=== PATIENT | female | born 1945 | race Caucasian/White ===

== ENCOUNTER → 2017-08-12 | Outpatient (CLI) | payer OTHER ==
[~2017-08-12] MED LIST: CELEBREX100 MG; FOLIC ACID1 MG; GLIMEPIRIDE1 MG; GLIMEPIRIDE2 MG; HYZAAR 100-121 UDTAB; METFORMIN HCL500 MG
== END | disposition home or self-care (01) ==
LOC: RAD 12:06
DX: M25.561 Pain in right knee (principal); M25.562 Pain in left knee

== ENCOUNTER 2018-01-08 11:46 | Emergency (ER) | payer OTHER ==
[~2018-01-08] VITALS: Ht 162.6 cm; Wt 90.7 kg
[2018-01-08] MEDS ORDERED: MUPIROCIN22 GM TOP (13:11)
[2018-01-08] MEDS ORDERED: AMOX1TAB5 PO (13:11)
[2018-01-08] MEDS ORDERED: HIBICLENS118 ML TOP (13:11)
[2018-01-08] MEDS ORDERED: INTESTINEX680 M1 PO (13:11)
[2018-01-08] MEDS ORDERED: HYZAAR 100-12.1 EACH PO (14:02)
[2018-01-08] MEDS ORDERED: GLIMEPIRIDE2 MG PO (14:02)
[2018-01-08] MEDS ORDERED: JANUVIA100 MG PO (14:02)
[2018-01-08] MEDS ORDERED: METFORMIN HCL500 MG PO (14:02)
[2018-01-08] MEDS ORDERED: FOLIC ACID1 MG PO (14:05)
[2018-01-08] MEDS ORDERED: DITROPAN XL10 MG PO (14:05)
[2018-01-08] MEDS ORDERED: NEURONTIN300 MG PO (14:05)
== END 2018-01-08 14:21 | disposition home or self-care (01) ==
LOC: ER 11:46
DX: L02.212 Cutaneous abscess of back [any part, except buttock and flank] (principal)

== ENCOUNTER 2018-03-02 11:26 | Emergency (ER) | payer OTHER ==
[~2018-03-02] VITALS: Ht 162.6 cm; Wt 90.7 kg
[~2018-03-02 11:26] MED LIST changes: +AMOX1TAB5 PO; +DITROPAN XL10 MG PO; +FOLIC ACID1 MG PO; +GLIMEPIRIDE2 MG PO; +HIBICLENS118 ML TOP; +HYZAAR 100-12.1 EACH PO; +INTESTINEX680 M1 PO; +JANUVIA100 MG PO; +METFORMIN HCL500 MG PO; +MUPIROCIN22 GM TOP; +NEURONTIN300 MG PO
[2018-03-02] MEDS ORDERED: DICLOFENAC POTA50 MG (11:50)
== END 2018-03-02 13:15 | disposition home or self-care (01) ==
LOC: ER 11:26
DX: B34.9 Viral infection, unspecified (principal); J11.1 Influenza due to unidentified influenza virus with other respiratory manifestations

== ENCOUNTER 2018-04-30 10:20 | Outpatient (CLI) | payer OTHER ==
[~2018-04-30 10:20] MED LIST changes: +DICLOFENAC POTA50 MG
== END 2018-04-30 10:22 | disposition home or self-care (01) ==
LOC: RAD 10:20
DX: I11.9 Hypertensive heart disease without heart failure (principal); R06.02 Shortness of breath

== ENCOUNTER → 2018-05-05 | Outpatient (CLI) | payer OTHER | END | disposition home or self-care (01) | LOC: NUCLEAR 09:55 | DX: M81.0 Age-related osteoporosis without current pathological fracture (principal); M15.0 Primary generalized (osteo)arthritis ==

== ENCOUNTER 2018-05-28 08:03 | Emergency (ER) | payer OTHER ==
[~2018-05-28] VITALS: Ht 162.6 cm; Wt 93.0 kg
[2018-05-28] MEDS ORDERED: ZOCOR20 MG (08:15)
[2018-05-28] MEDS ORDERED: BACTRIM DS TAB1 EACH PO (09:24)
[2018-05-28] MEDS ORDERED: MUPIROCIN15 GM TOP (09:24)
== END 2018-05-28 11:13 | disposition home or self-care (01) ==
LOC: ER 08:03
DX: L02.212 Cutaneous abscess of back [any part, except buttock and flank] (principal)

== ENCOUNTER 2018-07-21 14:04 | Outpatient (CLI) | payer OTHER ==
[~2018-07-21 14:04] MED LIST changes: +BACTRIM DS TAB1 EACH PO; +MUPIROCIN15 GM TOP; +ZOCOR20 MG
== END 2018-07-21 14:33 | disposition home or self-care (01) ==
LOC: MAMO-SONO 14:04
DX: Z12.31 Encounter for screening mammogram for malignant neoplasm of breast (principal); Z87.898 Personal history of other specified conditions; N60.11 Diffuse cystic mastopathy of right breast; N60.12 Diffuse cystic mastopathy of left breast

== ENCOUNTER → 2018-11-06 | Outpatient (CLI) | payer OTHER | END | disposition home or self-care (01) | LOC: LAB 14:06 | DX: N39.0 Urinary tract infection, site not specified (principal) ==

== ENCOUNTER → 2019-01-26 09:29 | Outpatient (CLI) | payer OTHER | END | disposition home or self-care (01) | LOC: LAB 09:29 | DX: D50.8 Other iron deficiency anemias (principal); E03.8 Other specified hypothyroidism; E78.2 Mixed hyperlipidemia; I11.9 Hypertensive heart disease without heart failure; E56.8 Deficiency of other vitamins; N39.0 Urinary tract infection, site not specified; Z12.11 Encounter for screening for malignant neoplasm of colon; R19.5 Other fecal abnormalities; E55.9 Vitamin D deficiency, unspecified; N19 Unspecified kidney failure; E11.9 Type 2 diabetes mellitus without complications; R80.8 Other proteinuria; C18.0 Malignant neoplasm of cecum ==

== ENCOUNTER 2019-05-25 09:07 | Outpatient (CLI) | payer OTHER | END 2019-05-25 09:13 | disposition home or self-care (01) | LOC: LAB 09:07 | DX: D50.8 Other iron deficiency anemias (principal); E03.8 Other specified hypothyroidism; E78.2 Mixed hyperlipidemia; I11.9 Hypertensive heart disease without heart failure; E56.8 Deficiency of other vitamins; N39.0 Urinary tract infection, site not specified; Z12.11 Encounter for screening for malignant neoplasm of colon; E55.9 Vitamin D deficiency, unspecified; N19 Unspecified kidney failure; E11.9 Type 2 diabetes mellitus without complications; R80.8 Other proteinuria; C18.0 Malignant neoplasm of cecum; K92.1 Melena ==

== ENCOUNTER 2019-09-17 07:24 | Outpatient (CLI) | payer OTHER | END 2019-09-17 08:05 | disposition home or self-care (01) | LOC: LAB 07:24 | PROVIDERS: ATTEND Internal Medicine Geriatric Medicine | DX: D50.8 Other iron deficiency anemias (principal); E03.8 Other specified hypothyroidism; E78.2 Mixed hyperlipidemia; I11.9 Hypertensive heart disease without heart failure; E56.8 Deficiency of other vitamins; N39.0 Urinary tract infection, site not specified; Z12.11 Encounter for screening for malignant neoplasm of colon; E55.9 Vitamin D deficiency, unspecified; N19 Unspecified kidney failure; E11.9 Type 2 diabetes mellitus without complications; R80.8 Other proteinuria; C18.0 Malignant neoplasm of cecum; K92.1 Melena ==

== ENCOUNTER 2019-09-19 09:51 | Emergency (ER) | payer OTHER ==
[~2019-09-19] VITALS: Ht 162.6 cm; Wt 93.0 kg
== END 2019-09-19 17:42 | disposition home or self-care (01) ==
LOC: ER 09:51
DX: N93.8 Other specified abnormal uterine and vaginal bleeding (principal)

== ENCOUNTER 2019-12-05 12:26 | Emergency (ER) | payer OTHER ==
[~2019-12-05] VITALS: Ht 162.6 cm; Wt 90.7 kg
== END 2019-12-05 13:30 | disposition home or self-care (01) ==
LOC: ER 12:26
DX: B35.4 Tinea corporis (principal)

== ENCOUNTER 2019-12-18 10:09 | Outpatient (CLI) | payer OTHER | END 2019-12-18 10:13 | disposition home or self-care (01) | LOC: LAB 10:09 | PROVIDERS: ATTEND Internal Medicine Geriatric Medicine | DX: D50.8 Other iron deficiency anemias (principal); E03.8 Other specified hypothyroidism; E78.2 Mixed hyperlipidemia; I11.9 Hypertensive heart disease without heart failure; E56.8 Deficiency of other vitamins; N39.0 Urinary tract infection, site not specified; Z12.11 Encounter for screening for malignant neoplasm of colon; E55.9 Vitamin D deficiency, unspecified; N18.9 Chronic kidney disease, unspecified; K92.1 Melena; C18.0 Malignant neoplasm of cecum; R80.8 Other proteinuria; E11.9 Type 2 diabetes mellitus without complications ==

== ENCOUNTER 2020-03-28 07:17 | Outpatient (CLI) | payer OTHER | END 2020-03-28 07:27 | disposition home or self-care (01) | LOC: LAB 07:17 | PROVIDERS: ATTEND Internal Medicine Geriatric Medicine | DX: D50.8 Other iron deficiency anemias (principal); E03.8 Other specified hypothyroidism; E78.2 Mixed hyperlipidemia; I11.9 Hypertensive heart disease without heart failure; E56.8 Deficiency of other vitamins; N39.0 Urinary tract infection, site not specified; Z12.11 Encounter for screening for malignant neoplasm of colon; E55.9 Vitamin D deficiency, unspecified; N19 Unspecified kidney failure; E11.9 Type 2 diabetes mellitus without complications; R80.8 Other proteinuria; K92.1 Melena ==

== ENCOUNTER 2020-03-28 08:59 | Outpatient (CLI) | payer OTHER | END 2020-03-28 09:08 | disposition home or self-care (01) | LOC: MAMO-SONO 08:59 | PROVIDERS: ATTEND Internal Medicine Geriatric Medicine | DX: Z12.31 Encounter for screening mammogram for malignant neoplasm of breast (principal); N60.01 Solitary cyst of right breast; N60.11 Diffuse cystic mastopathy of right breast; N60.12 Diffuse cystic mastopathy of left breast; N64.4 Mastodynia ==

== ENCOUNTER 2020-03-29 10:02 | Outpatient (CLI) | payer OTHER | END 2020-03-29 15:00 | disposition home or self-care (01) | LOC: LAB 10:02 | PROVIDERS: ATTEND Internal Medicine Geriatric Medicine | DX: E03.8 Other specified hypothyroidism (principal); D50.8 Other iron deficiency anemias; E78.2 Mixed hyperlipidemia; I11.9 Hypertensive heart disease without heart failure; E56.8 Deficiency of other vitamins; N39.0 Urinary tract infection, site not specified; Z12.11 Encounter for screening for malignant neoplasm of colon; E55.9 Vitamin D deficiency, unspecified; N19 Unspecified kidney failure; E11.9 Type 2 diabetes mellitus without complications; R80.8 Other proteinuria; C18.0 Malignant neoplasm of cecum; K92.1 Melena ==

== ENCOUNTER 2020-06-27 07:43 | Outpatient (CLI) | payer OTHER | END 2020-06-27 07:51 | disposition home or self-care (01) | LOC: LAB 07:43 | PROVIDERS: ATTEND Internal Medicine Geriatric Medicine | DX: D50.8 Other iron deficiency anemias (principal); E03.8 Other specified hypothyroidism; E78.2 Mixed hyperlipidemia; I11.9 Hypertensive heart disease without heart failure; E56.8 Deficiency of other vitamins; N39.0 Urinary tract infection, site not specified; Z12.11 Encounter for screening for malignant neoplasm of colon; E55.9 Vitamin D deficiency, unspecified; N19 Unspecified kidney failure; E11.9 Type 2 diabetes mellitus without complications; R80.8 Other proteinuria; C18.0 Malignant neoplasm of cecum; K92.1 Melena; R06.02 Shortness of breath ==

== ENCOUNTER → 2020-09-26 08:49 | Outpatient (CLI) | payer OTHER | END | disposition home or self-care (01) | LOC: LAB 08:49 | PROVIDERS: ATTEND Internal Medicine Geriatric Medicine | DX: D50.9 Iron deficiency anemia, unspecified (principal); E03.9 Hypothyroidism, unspecified; E78.2 Mixed hyperlipidemia; E11.9 Type 2 diabetes mellitus without complications; E56.8 Deficiency of other vitamins; N39.0 Urinary tract infection, site not specified; E55.9 Vitamin D deficiency, unspecified; N19 Unspecified kidney failure; R80.9 Proteinuria, unspecified; C18.9 Malignant neoplasm of colon, unspecified; K92.1 Melena ==

== ENCOUNTER 2020-12-27 08:58 | Outpatient (CLI) | payer OTHER | END 2020-12-27 08:59 | disposition home or self-care (01) | LOC: LAB 08:58 | PROVIDERS: ATTEND Internal Medicine Geriatric Medicine | DX: D50.8 Other iron deficiency anemias (principal); E03.8 Other specified hypothyroidism; E78.2 Mixed hyperlipidemia; I11.9 Hypertensive heart disease without heart failure; E56.8 Deficiency of other vitamins; N39.0 Urinary tract infection, site not specified; Z12.11 Encounter for screening for malignant neoplasm of colon; R19.5 Other fecal abnormalities; E55.9 Vitamin D deficiency, unspecified; N28.89 Other specified disorders of kidney and ureter; E11.9 Type 2 diabetes mellitus without complications; R80.8 Other proteinuria ==

== ENCOUNTER 2021-03-27 13:54 | Outpatient (CLI) | payer OTHER | END 2021-03-27 13:55 | disposition home or self-care (01) | LOC: LAB 13:54 | PROVIDERS: ATTEND Internal Medicine Geriatric Medicine | DX: D50.8 Other iron deficiency anemias (principal); E03.8 Other specified hypothyroidism; E78.2 Mixed hyperlipidemia; I11.9 Hypertensive heart disease without heart failure; E56.8 Deficiency of other vitamins; N39.0 Urinary tract infection, site not specified; Z12.11 Encounter for screening for malignant neoplasm of colon; R19.5 Other fecal abnormalities; E55.9 Vitamin D deficiency, unspecified; N19 Unspecified kidney failure; E11.9 Type 2 diabetes mellitus without complications; R80.8 Other proteinuria ==

== ENCOUNTER 2021-03-30 08:00 | Outpatient (CLI) | payer OTHER | END 2021-03-30 08:30 | disposition home or self-care (01) | LOC: PPH VACUNA 08:00 | PROVIDERS: ATTEND Emergency Medicine Pediatric Emergency Medicine | DX: Z23 Encounter for immunization (principal) ==

== ENCOUNTER → 2021-06-15 08:08 | Outpatient (CLI) | payer OTHER | END | disposition home or self-care (01) | LOC: LAB 08:08 | PROVIDERS: ATTEND Internal Medicine Geriatric Medicine | DX: D50.9 Iron deficiency anemia, unspecified (principal); E03.9 Hypothyroidism, unspecified; E78.2 Mixed hyperlipidemia; I11.9 Hypertensive heart disease without heart failure; E56.8 Deficiency of other vitamins; N39.0 Urinary tract infection, site not specified; Z12.11 Encounter for screening for malignant neoplasm of colon; E55.9 Vitamin D deficiency, unspecified; N19 Unspecified kidney failure; R80.9 Proteinuria, unspecified; K92.1 Melena; R06.02 Shortness of breath ==

== ENCOUNTER 2021-09-13 08:32 | Outpatient (CLI) | payer OTHER | END 2021-09-13 08:39 | disposition home or self-care (01) | LOC: LAB 08:32 | PROVIDERS: ATTEND Internal Medicine Geriatric Medicine | DX: D50.9 Iron deficiency anemia, unspecified (principal); E03.9 Hypothyroidism, unspecified; E78.2 Mixed hyperlipidemia; I11.9 Hypertensive heart disease without heart failure; E56.8 Deficiency of other vitamins; N39.0 Urinary tract infection, site not specified; Z12.11 Encounter for screening for malignant neoplasm of colon; R19.5 Other fecal abnormalities; E55.9 Vitamin D deficiency, unspecified; N19 Unspecified kidney failure; E11.9 Type 2 diabetes mellitus without complications ==

== ENCOUNTER 2021-09-22 09:15 | Outpatient (CLI) | payer OTHER | END 2021-09-22 09:25 | disposition home or self-care (01) | LOC: PPH VACUNA 09:15 | PROVIDERS: ATTEND Emergency Medicine Pediatric Emergency Medicine | DX: Z23 Encounter for immunization (principal) ==

== ENCOUNTER 2022-03-23 07:25 | Outpatient (CLI) | payer OTHER | END 2022-03-23 07:29 | disposition home or self-care (01) | LOC: LAB 07:25 | PROVIDERS: ATTEND Internal Medicine Geriatric Medicine | DX: D50.9 Iron deficiency anemia, unspecified (principal); E03.9 Hypothyroidism, unspecified; E78.2 Mixed hyperlipidemia; I11.9 Hypertensive heart disease without heart failure; E56.8 Deficiency of other vitamins; N39.0 Urinary tract infection, site not specified; Z12.11 Encounter for screening for malignant neoplasm of colon; R19.5 Other fecal abnormalities; E55.9 Vitamin D deficiency, unspecified; N19 Unspecified kidney failure; E11.9 Type 2 diabetes mellitus without complications ==

== ENCOUNTER 2022-04-04 09:11 | Outpatient (CLI) | payer OTHER | END 2022-04-04 09:20 | disposition home or self-care (01) | LOC: LAB 09:11 → NUCLEAR 13:30 | PROVIDERS: ATTEND Internal Medicine Geriatric Medicine | DX: D50.9 Iron deficiency anemia, unspecified (principal); E03.9 Hypothyroidism, unspecified; E78.2 Mixed hyperlipidemia; I11.9 Hypertensive heart disease without heart failure; E56.8 Deficiency of other vitamins; N39.0 Urinary tract infection, site not specified; Z12.11 Encounter for screening for malignant neoplasm of colon; E55.9 Vitamin D deficiency, unspecified; N19 Unspecified kidney failure; E11.9 Type 2 diabetes mellitus without complications; K92.1 Melena ==

== ENCOUNTER 2022-04-04 10:27 | Outpatient (CLI) | payer OTHER | END 2022-04-04 10:37 | disposition home or self-care (01) | LOC: PPH VACUNA 10:27 | PROVIDERS: ATTEND Emergency Medicine Pediatric Emergency Medicine | DX: Z23 Encounter for immunization (principal) ==

== ENCOUNTER 2022-04-04 14:41 | Outpatient (CLI) | payer OTHER | END 2022-04-04 14:42 | disposition home or self-care (01) | LOC: NUCLEAR 14:41 | PROVIDERS: ATTEND Emergency Medicine Pediatric Emergency Medicine | DX: M81.0 Age-related osteoporosis without current pathological fracture (principal); M15.0 Primary generalized (osteo)arthritis; Z88.6 Allergy status to analgesic agent ==

== ENCOUNTER 2023-05-01 09:52 | Outpatient (CLI) | payer OTHER | END 2023-05-01 09:58 | disposition home or self-care (01) | LOC: MAMO-SONO 09:52 | PROVIDERS: ATTEND Emergency Medicine Pediatric Emergency Medicine | DX: Z12.31 Encounter for screening mammogram for malignant neoplasm of breast (principal); C50.919 Malignant neoplasm of unspecified site of unspecified female breast; N63.0 Unspecified lump in unspecified breast; N64.4 Mastodynia; N60.12 Diffuse cystic mastopathy of left breast; N60.11 Diffuse cystic mastopathy of right breast ==

== ENCOUNTER 2023-08-05 10:07 | Outpatient (CLI) | payer OTHER ==
[2023-08-05 11:53] LABS: HEMATOCRIT 36.6 % (36.0-45.00); HEMOGLOBIN 12.3 g/dL (12.0-15.00); MEAN CELL VOLUME 84.8 fL (80.00-100.00); MEAN CORPUSCULAR HEMOGLOBIN 28.5 pg (27.00-32.0); MEAN CORPUSCULAR HGB CONC 33.5 g/dl (32.0-36.0); PLATELET COUNT 280 K/uL (150-450); RED BLOOD COUNT 4.31 M/uL (4.00-6.00); RED CELL DISTRIBUTION WIDTH 14.2 % (11.5-14.5)
[2023-08-05 12:03] LABS: INR 1.04; PARTIAL THROMBOPLASTIN TIME 22.4 SECONDS (22.0-34.0); PROTHROMBIN TIME 10.9 SECONDS (9.0-11.5)
[2023-08-05 12:18] LABS: ALBUMIN 3.7 gm/dL (3.4-5.0); BILIRUBIN TOTAL 0.48 mg/dL (0.3-1.2); CREATININE SERUM 0.85 mg/dL (0.55-1.02); GFR 64.68; GLOBULINA 3.8 G/DL (2.4-3.5); POTASSIUM 4.25 mEq/L (3.5-5.1); TOTAL PROTEIN 7.5 gm/dL (6.4-8.2)
== END 2023-08-05 10:10 | disposition home or self-care (01) ==
LOC: LAB 10:07
PROVIDERS: ATTEND Ophthalmology
DX: I10 Essential (primary) hypertension (principal); D68.8 Other specified coagulation defects; H25.013 Cortical age-related cataract, bilateral; Z01.811 Encounter for preprocedural respiratory examination

== ENCOUNTER 2024-06-11 12:03 | Outpatient (CLI) | payer OTHER | END 2024-06-11 12:09 | disposition home or self-care (01) | LOC: MAMO-SONO 12:03 | PROVIDERS: ATTEND Internal Medicine Geriatric Medicine | DX: Z12.31 Encounter for screening mammogram for malignant neoplasm of breast (principal); C50.919 Malignant neoplasm of unspecified site of unspecified female breast; N64.4 Mastodynia; N60.12 Diffuse cystic mastopathy of left breast; N60.11 Diffuse cystic mastopathy of right breast ==

== ENCOUNTER 2024-08-24 14:38 | Emergency (ER) | payer OTHER ==
[~2024-08-24] VITALS: Ht 165.1 cm; Wt 89.8 kg
[2024-08-24] MEDS ORDERED: ORPHENADRINE CITRATE 30 MG/ML AMPUL IM STA (17:08)
[2024-08-24] MEDS ORDERED: DEXAMETHASONE SODIUM PHOSPHATE 4 MG/ML VIAL IM STA (17:10)
[2024-08-24] MEDS ORDERED: ORPHENADRINE CITRATE 30 MG/ML AMPUL ONE (17:33)
[2024-08-24] MEDS ORDERED: DEXAMETHASONE SODIUM PHOSPHATE 4 MG/ML VIAL ONE (17:33)
[2024-08-24] MEDS ORDERED: NORFLEX100MG PO (19:31)
== END 2024-08-24 20:58 | disposition home or self-care (01) ==
LOC: ER 14:38
DX: M62.838 Other muscle spasm (principal); I10 Essential (primary) hypertension; E11.9 Type 2 diabetes mellitus without complications; Z88.6 Allergy status to analgesic agent
CPT/HCPCS: 96372; 99282; J1100; J2360

== ENCOUNTER 2024-10-01 07:38 | Emergency (ER) | payer OTHER ==
[~2024-10-01] VITALS: Ht 162.6 cm; Wt 88.5 kg
[~2024-10-01 07:38] MED LIST changes: +NORFLEX100MG PO
[2024-10-01 07:56] VITALS: BP 130/83; O2SAT 99
[2024-10-01] MEDS ORDERED: FENOFIBRATE160 MG (07:59)
[2024-10-01] MEDS ORDERED: CANDESARTAN CILE8 M1 PO (07:59)
[2024-10-01] MEDS ORDERED: KETOROLAC TROMETHAMINE 60 MG VIAL IM ONE ×2 (09:30→09:34)
[2024-10-01] MEDS ORDERED: CEFTRIAXONE SODIUM 1,000 MG VIAL ONE (09:34)
== END 2024-10-01 12:46 | disposition home or self-care (01) ==
LOC: ER 07:38
DX: M19.019 Primary osteoarthritis, unspecified shoulder (principal); M62.838 Other muscle spasm; M62.830 Muscle spasm of back; I10 Essential (primary) hypertension; E11.9 Type 2 diabetes mellitus without complications
CPT/HCPCS: 72040; 73020; 96372; 99283; J1885